=== PATIENT | male | born 1950 | race Two or more races ===

== ENCOUNTER 2021-02-07 09:34 | Emergency (ER) | payer BC ==
[~2021-02-07] VITALS: Ht 180.3 cm; Wt 93.0 kg
[2021-02-07] MEDS ORDERED: PROAIR RESPICL90 MCG IH (10:21)
[2021-02-07] MEDS ORDERED: PROAIR HFA8.5 GM (10:21)
[2021-02-07] MEDS ORDERED: ZYLOPRIM100 M1 (10:21)
[2021-02-07] MEDS ORDERED: [UNRECOGNIZED DRUG - OTHER] PO (10:22)
[2021-02-07] MEDS ORDERED: CELEBREX200MG PO (10:22)
[2021-02-07] MEDS ORDERED: ZETIA10 MG PO ×2 (10:22→10:25)
[2021-02-07] MEDS ORDERED: BYSTOLIC5 MG PO (10:22)
[2021-02-07] MEDS ORDERED: GLYXAMBI 25 MG1 EACH PO (10:23)
[2021-02-07] MEDS ORDERED: LYRICA150 MG PO (10:23)
[2021-02-07] MEDS ORDERED: NITROSTAT0.4 MG SL (10:23)
[2021-02-07] MEDS ORDERED: FAMOTIDINE20 MG PO (10:23)
[2021-02-07] MEDS ORDERED: ZANAFLEX4 M1 PO (10:24)
[2021-02-07] MEDS ORDERED: SYMBICORT 16010.2 GM IH (10:24)
[2021-02-07] MEDS ORDERED: PLAVIX75 MG PO (10:24)
[2021-02-07] MEDS ORDERED: TRIPLE FLEX CA1 EACH PO (10:25)
[2021-02-07] MEDS ORDERED: ASPIRIN81 MG PO (10:25)
[2021-02-07] MEDS ORDERED: TRAZODONE HCL150 MG (10:25)
== END 2021-02-07 17:02 | disposition home or self-care (01) ==
LOC: ER 09:34
DX: M54.17 Radiculopathy, lumbosacral region (principal); Z20.822 Contact with and (suspected) exposure to COVID-19